=== PATIENT | female | born 1990 | race African-American/Black ===

== ENCOUNTER 2018-12-25 22:32 | Observation (INO) | payer MEDICARE, OTHER ==
[2018-12-26 00:55] LABS: ADD MAN DIFF? NO
[2018-12-26 01:17] LABS: ALANINE AMINOTRANSFERASE 13 IU/L (13-69); ALBUMIN 4.3 g/dl (3.3-4.9); ALKALINE PHOSPHATASE 106 IU/L (42-121); ANION GAP 14 (5-13); ASPARTATE AMINO TRANSFERASE 24 IU/L (15-46); BILIRUBIN,INDIRECT 0.1 mg/dl (0-1.1); BILIRUBIN,TOTAL 0.1 mg/dl (0.2-1.3); BLOOD UREA NITROGEN 47 mg/dl (7-20); CALCIUM 9.8 mg/dl (8.4-10.2); CARBON DIOXIDE 32 mmol/L (21-31); CHLORIDE 93 mmol/L (97-110); CREATININE 10.37 mg/dl (0.44-1.00); Estimated GFR 4 mL/min (>60); GLUCOSE 101 mg/dl (70-220); POTASSIUM 4.8 mmol/L (3.5-5.1); SODIUM 139 mmol/L (135-144); TOTAL PROTEIN 8.2 g/dl (6.1-8.1)
[2018-12-26 01:25] LABS: B-TYPE NATRIURETIC PEPTIDE 10900 PG/ML (0-125)
[2018-12-26 01:30] LABS: TROPONIN-I 0.015 ng/ml (0.000-0.120)
[2018-12-26 02:11] LABS: BASOPHILS % 0.2 % (0.0-2.0); EOSINOPHILS # 0.1 10^3/ul (0.0-0.5); EOSINOPHILS % 1.8 % (0.0-7.0); HEMOGLOBIN 9.5 g/dl (12.0-16.0); LYMPHOCYTES # 0.8 10^3/ul (0.8-2.9); LYMPHOCYTES % 15.2 % (15.0-51.0); MEAN CORPUSCULAR HEMOGLOBIN 27.2 pg (29.0-33.0); MEAN CORPUSCULAR HGB CONC 31.7 g/dl (32.0-37.0); MEAN PLATELET VOLUME 10.2 fl (7.4-10.4); MONOCYTE # 0.5 10^3/ul (0.3-0.9); MONOCYTES % 9.1 % (0.0-11.0); NEUTROPHIL # 3.6 10^3/ul (1.6-7.5); NEUTROPHILS % 73.3 % (39.0-77.0); PLATELET COUNT 218 10^3/UL (140-415); RED BLOOD COUNT 3.49 10^6/ul (4.20-5.40); RED CELL DISTRIBUTION WIDTH 14.9 % (11.5-14.5)
[2018-12-26 02:11] LABS: WHITE BLOOD COUNT 4.9 10^3/ul (4.8-10.8)
[2018-12-26] MEDS ORDERED: ONDANSETRON 4 MG INJ IV (05:30)
[2018-12-26] MEDS ORDERED: ACETAMINOPHEN 325 MG TAB PO (05:30)
[2018-12-26] MEDS ORDERED: ALBUTEROL/IPRATROPIUM (NEB) 3 ML AMP HHN (05:30)
[2018-12-26] MEDS ORDERED: NITROGLYCERIN (SL) 0.4 MG TAB SL (05:30)
[2018-12-26] MEDS ORDERED: NACL 0.9% 3 ML SYG IV (05:30)
[2018-12-26 06:46] LABS: CREATINE KINASE 48 IU/L (23-200)
[2018-12-26 07:05] LABS: CK INDEX 0.5; CK-MB < 0.22 ng/ml (0.0-2.4); TROPONIN-I 0.013 ng/ml (0.000-0.120)
[2018-12-26] MEDS: ASPIRIN 81 MG TAB PO (08:57)
[2018-12-26] MEDS: METOPROLOL 50 MG TAB PO ×2 (08:58→20:41)
[2018-12-26] MEDS: SEVELAMER CARBONATE 0.8 GM PKT PO ×3 (08:58→18:28)
[2018-12-26] MEDS: HEPARIN 5,000 UNIT/1 ML VIAL SC ×2 (08:58→20:45)
[2018-12-26 12:10] LABS: CREATINE KINASE 53 IU/L (23-200)
[2018-12-26 12:25] LABS: CK INDEX 0.5; CK-MB 0.29 ng/ml (0.0-2.4); TROPONIN-I < 0.012 ng/ml (0.000-0.120)
[2018-12-26] MEDS: NIFEdipine (XL) 30 MG TAB PO (15:23)
[2018-12-26] MEDS ORDERED: hydrALAzine 20 MG INJ IV (18:30)
[2018-12-27 06:34] LABS: ADD MAN DIFF? NO
[2018-12-27 06:46] LABS: BASOPHILS % 0.4 % (0.0-2.0); EOSINOPHILS # 0.3 10^3/ul (0.0-0.5); EOSINOPHILS % 5.2 % (0.0-7.0); HEMATOCRIT 28.3 % (37.0-47.0); HEMOGLOBIN 8.7 g/dl (12.0-16.0); LYMPHOCYTES # 0.9 10^3/ul (0.8-2.9); MEAN CORPUSCULAR HEMOGLOBIN 26.4 pg (29.0-33.0); MEAN CORPUSCULAR HGB CONC 30.7 g/dl (32.0-37.0); MEAN CORPUSCULAR VOLUME 85.8 fl (82.0-101.0); MEAN PLATELET VOLUME 10.5 fl (7.4-10.4); MONOCYTE # 0.4 10^3/ul (0.3-0.9); NEUTROPHIL # 3.8 10^3/ul (1.6-7.5); NEUTROPHILS % 69.7 % (39.0-77.0); PLATELET COUNT 190 10^3/UL (140-415); RED CELL DISTRIBUTION WIDTH 14.8 % (11.5-14.5)
[2018-12-27 06:46] LABS: WHITE BLOOD COUNT 5.4 10^3/ul (4.8-10.8)
[2018-12-27 07:03] LABS: IRON 60 ug/dl (35-150)
[2018-12-27 07:05] LABS: ALANINE AMINOTRANSFERASE 11 IU/L (13-69); ALBUMIN 3.9 g/dl (3.3-4.9); ALBUMIN/GLOBULIN RATIO 1.14; ALKALINE PHOSPHATASE 96 IU/L (42-121); ANION GAP 18 (5-13); ASPARTATE AMINO TRANSFERASE 10 IU/L (15-46); BLOOD UREA NITROGEN 70 mg/dl (7-20); CALCIUM 9.8 mg/dl (8.4-10.2); CARBON DIOXIDE 26 mmol/L (21-31); CHLORIDE 98 mmol/L (97-110); CHOL/HDL RATIO 7.4 RATIO; CHOLESTEROL 172 mg/dl (100-200); GLUCOSE 127 mg/dl (70-220); HDL CHOLESTEROL 23 mg/dl (34-82); LDL CHOLESTEROL,CALCULATED 112 mg/dl; MAGNESIUM 2.3 mg/dl (1.7-2.5); POTASSIUM 4.2 mmol/L (3.5-5.1); SODIUM 142 mmol/L (135-144); TOTAL PROTEIN 7.3 g/dl (6.1-8.1); TRIGLYCERIDES 185 mg/dl (0-149)
[2018-12-27 07:12] LABS: CREATININE 15.51 mg/dl (0.44-1.00); Estimated GFR 3 mL/min (>60)
[2018-12-27 07:13] LABS: % IRON SATURATION 29 % SAT (22-52); TOTAL IRON BINDING CAPACITY 206 ug/dl (241-421)
[2018-12-27 07:22] LABS: HEMOGLOBIN A1C 4.7 % (0-5.9)
[2018-12-27] MEDS: NIFEdipine (XL) 30 MG TAB PO (07:57)
[2018-12-27] MEDS: METOPROLOL 50 MG TAB PO (07:57)
[2018-12-27] MEDS: ASPIRIN 81 MG TAB PO (07:58)
[2018-12-27] MEDS: SEVELAMER CARBONATE 0.8 GM PKT PO ×2 (07:58→12:03)
[2018-12-27] MEDS: HEPARIN 5,000 UNIT/1 ML VIAL SC (08:02)
[2018-12-27 08:07] LABS: HEPATITIS B SURFACE ANTIGEN NEGATIVE (NEGATIVE)
[2018-12-27] MEDS: FISH OIL 1,000 MG CAP PO (12:47)
[2018-12-27] MEDS: METOPROLOL 25 MG TAB PO (12:47)
[2018-12-27] MEDS ORDERED: ATORVASTATIN 20 MG TAB PO (21:00)
[2018-12-27] MEDS ORDERED: METOPROLOL 50 MG TAB PO (21:00)
[2018-12-27] MEDS ORDERED: METOPROLOL 25 MG TAB PO (21:00)
== END 2018-12-27 15:00 | disposition home or self-care (01) ==
LOC: E/R 22:32 → TEL 12-26 03:02
DX: R07.9 Chest pain, unspecified (principal); I12.0 Hypertensive chronic kidney disease with stage 5 chronic kidney disease or end stage renal disease; N18.6 End stage renal disease; Z99.2 Dependence on renal dialysis; E66.9 Obesity, unspecified; Z68.41 Body mass index [BMI] 40.0-44.9, adult; D64.9 Anemia, unspecified; M89.8X9 Other specified disorders of bone, unspecified site
CPT/HCPCS: 36415; 71045; 80053; 80061; 82550; 82553; 82728; 83036; 83540; 83735; 83880; 84443; 84484; 85025; 87081; 87340; 90935; 93005; 93306; 99285-25; G0378

== ENCOUNTER 2019-04-27 16:41 | Emergency (ER) | payer MEDICARE ==
[2019-04-27 18:29] LABS: ADD MAN DIFF? NO
[2019-04-27 18:32] LABS: BASOPHILS % 0.3 % (0.0-2.0); EOSINOPHILS # 0.2 10^3/ul (0.0-0.5); EOSINOPHILS % 2.8 % (0.0-7.0); HEMATOCRIT 29.2 % (37.0-47.0); HEMOGLOBIN 8.6 g/dl (12.0-16.0); LYMPHOCYTES # 0.9 10^3/ul (0.8-2.9); LYMPHOCYTES % 14.4 % (15.0-51.0); MEAN CORPUSCULAR HEMOGLOBIN 24.5 pg (29.0-33.0); MEAN CORPUSCULAR HGB CONC 29.5 g/dl (32.0-37.0); MEAN CORPUSCULAR VOLUME 83.2 fl (82.0-101.0); MEAN PLATELET VOLUME 9.6 fl (7.4-10.4); MONOCYTE # 0.6 10^3/ul (0.3-0.9); MONOCYTES % 10.2 % (0.0-11.0); NEUTROPHIL # 4.3 10^3/ul (1.6-7.5); NEUTROPHILS % 71.6 % (39.0-77.0); PLATELET COUNT 233 10^3/UL (140-415); RED BLOOD COUNT 3.51 10^6/ul (4.20-5.40); RED CELL DISTRIBUTION WIDTH 17.1 % (11.5-14.5)
[2019-04-27 18:48] LABS: ANION GAP 10 (5-13); BLOOD UREA NITROGEN 31 mg/dl (7-20); CALCIUM 7.1 mg/dl (8.4-10.2); CARBON DIOXIDE 32 mmol/L (21-31); CHLORIDE 99 mmol/L (97-110); CREATININE 10.21 mg/dl (0.44-1.00); Estimated GFR 5 mL/min (>60); GLUCOSE 88 mg/dl (70-220); POTASSIUM 4.7 mmol/L (3.5-5.1); SODIUM 141 mmol/L (135-144)
[2019-04-27] MEDS: CALCIUM CARBONATE 500 MG CHEW TAB PO (20:47)
[2019-04-27] MEDS: CALCIUM GLUCONATE 10% 2 GM in DEXTROSE 5% 100 ML IVPB (20:48)
== END 2019-04-27 22:01 | disposition home or self-care (01) ==
LOC: E/R 16:41
DX: E83.51 Hypocalcemia (principal); I12.0 Hypertensive chronic kidney disease with stage 5 chronic kidney disease or end stage renal disease; N18.6 End stage renal disease; Z99.2 Dependence on renal dialysis; Z94.0 Kidney transplant status
CPT/HCPCS: 71045; 80048; 85025; 96374; 99284-25